=== PATIENT | female | born 1990 | race Two or more races ===

== ENCOUNTER 2018-07-27 10:54 | Emergency (ER) | payer SELFPAY ==
[~2018-07-27] VITALS: Ht 170.2 cm; Wt 122.0 kg
[2018-07-27 12:52] VITALS: BP 131/84
== END 2018-07-27 13:01 | disposition home or self-care (01) ==
LOC: ER 10:54
DX: H60.91 Unspecified otitis externa, right ear (principal)
CPT/HCPCS: 99283